=== PATIENT | female | born 1980 | race African-American/Black ===

== ENCOUNTER 2017-07-16 14:27 | Observation (INO) | payer OTHER ==
[~2017-07-16] VITALS: Ht 154.9 cm; Wt 120.7 kg
[~2017-07-16 14:27] MED LIST: FUROSEMIDE40 MG PO; IBUPROFEN400 MG PO
[2017-07-16] MEDS ORDERED: ENOXAPARIN SODIUM INJ 100 MG/ML SYR SC STA (17:16)
[2017-07-16] MEDS ORDERED: NITROGLYCERIN 0.4 MG SUBL SL PRN (17:30)
[2017-07-16] MEDS ORDERED: ASPIRIN 81 MG CHEW TAB PO ONE (17:30)
[2017-07-16] MEDS ORDERED: FAMOTIDINE 20 MG TAB PO SCH (17:30)
[2017-07-16] MEDS ORDERED: ONDANSETRON HCL INJ 2 MG/ML VIAL IV PRN (17:30)
[2017-07-16] MEDS ORDERED: DONNATAL/LIDOCAINE/MAALOX 30 ML SUSP PO ONE (18:00)
[2017-07-16] MEDS: ENOXAPARIN SODIUM INJ 100 MG/ML SYR SC SCH ×2 (18:30→21:00)
[2017-07-16 20:00] VITALS: BP 150/68
[2017-07-16 20:37] LABS: CREATINE KINASE 89 IU/L (29-168)
[2017-07-16] MEDS ORDERED: SIMVASTATIN 20 MG TAB PO SCH (21:00)
[2017-07-16] MEDS ORDERED: HYDRALAZINE HCL 20 MG/ML VIAL IV PRN (22:00)
[2017-07-16] MEDS ORDERED: ONDANSETRON HCL 4 MG ORAL DISINTEGRATING TAB PO PRN (22:00)
[2017-07-16] MEDS: MORPHINE SULFATE 2 MG/ML SYR IV PRN (22:39)
[2017-07-17] VITALS (7 sets, daily range): BP systolic 126–150; BP diastolic 53–89
[2017-07-17 06:59] LABS: BASOPHILS % 0.2 % (0.0-1.0); EOSINOPHILS # (AUTO) 0.2 (0.0-0.4); EOSINOPHILS % 4.4 % (0.0-6.0); HEMATOCRIT 33.2 % (34.2-44.1); LYMPHOCYTES % 44.3 % (18.0-39.1); MEAN CORPUSCULAR HEMOGLOBIN 26.2 pg (28-32); MEAN CORPUSCULAR HGB CONC 31.9 g/dL (31-35); MEAN CORPUSCULAR VOLUME 82.2 fL (81-99); MONOCYTES # (AUTO) 0.4 (0.2-0.8); MONOCYTES % 8.1 % (4.4-11.3); NEUTROPHILS % 42.8 % (38.7-80.0); PLATELET COUNT 273 x10e3/uL (140-360); RED BLOOD COUNT 4.04 x10e6/uL (3.6-5.1); RED CELL DISTRIBUTION WIDTH 14.1 % (11.7-14.4)
[2017-07-17 07:33] LABS: HEMOGLOBIN 10.6 g/dL (12.0-16.0)
[2017-07-17 07:36] LABS: ANION GAP 11.4 mmol/L (8-16); BLOOD UREA NITROGEN 16 mg/dL (7-26); BUN/CREATININE RATIO 19 (6-25); CARBON DIOXIDE 25 mmol/L (22-29); CHLORIDE 110 mmol/L (98-107); CHOL/HDL RATIO 2.9 (3.0-3.6); CHOLESTEROL 194 MD/DL (0-199); CREATINE KINASE 74 IU/L (29-168); CREATININE, SERUM 0.84 mg/dL (0.57-1.11); EST GLOMERULAR FILTRATION RATE > 60 ML/MIN (60-); GLUCOSE 99 mg/dL (74-118); HDL CHOLESTEROL 68 MG/DL (40-60); LDL CHOLESTEROL 117 MG/DL (60-130); MAGNESIUM 1.9 MG/DL (1.3-2.1); PHOSPHORUS 4.1 MG/DL (2.3-4.7); POTASSIUM 4.4 mmol/L (3.5-5.1); SODIUM 142 mmol/L (136-145); TRIGLYCERIDES 43 MG/DL (0-149)
[2017-07-17] MEDS: MORPHINE SULFATE 2 MG/ML SYR IV PRN (07:55)
[2017-07-17] MEDS ORDERED: FAMOTIDINE 20 MG TAB PO SCH (09:00)
[2017-07-17] MEDS: ENOXAPARIN SODIUM INJ 100 MG/ML SYR SC SCH (09:00)
[2017-07-17] MEDS ORDERED: ASPIRIN 325 MG TAB EC PO SCH (09:00)
--- NOTE | 2017-07-17 09:35 | Consultation ---
DATE OF CONSULTATION: July 17, 2017 CARDIOLOGY CONSULTATION REASON FOR CONSULTATION: Chest pain. HISTORY OF PRESENT ILLNESS: This is a 37-year-old female with diet-controlled diabetes, hypertension, obesity and bilateral DVTs in 2013. The patient presents with several-week history of chest pain. She reports it is sharp, retrosternal, lasting minutes at a time, worse with exertion, occurring several times a day. The patient had an episode prior to coming in, therefore came in for further evaluation. Cardiology consulted. Patient seen in room. Reports above complaints. Also states this morning she woke up with some chest discomfort, dull in nature, with right arm numbness. Currently, the discomfort has resolved. Troponin was checked and negative times 2 thus far. EKG with no ST changes suggesting acute event. PAST MEDICAL HISTORY 1. Diabetes. 2. Hypertension. 3. Bilateral DVTs in 2013. 4. Obesity. 5. Anal fissures. 6. Chronic lower extremity edema. PAST SURGICAL HISTORY 1. Tubal ligation. 2. x4. 3. Left inguinal hernia repair. 4. Bilateral mrezek-pae-ivy keloids removed. 5. Apparently spinal tap in 2016 for fluid behind her right eye. 6. Left ACL and meniscus repair in 2016. SOCIAL HISTORY: She is . She has 4 kids, reported healthy. 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 She denies any alcohol use, tobacco use or illicit drugs. FAMILY HISTORY: Mother alive at 67 years of age, reported as healthy. Father is at age of 43 from [place]. HOME MEDICATIONS: Bumex, unknown dosage. ALLERGIES: NO KNOWN ALLERGIES. REVIEW OF SYSTEMS GENERAL: Denies any weight gains, weight changes, fatigue, weakness, fevers, chills, or night sweats. SKIN: No rashes or bruises. HEENT: No head trauma. No nausea or vomiting. Does have blurred vision. She is supposed to be using corrective vision, however, does not. No tinnitus, vertigo or earaches. Positive for stuffiness and sneezing. Denies any epistaxis. No hoarseness, sore throat, swollen neck. CARDIAC: Chest pain as above. Dyspnea on exertion. Denies any orthopnea or PND. RESPIRATORY: Positive for shortness of breath. Denies any wheezing, cough, hemoptysis. GI: Good appetite. Negative for nausea or vomiting. No diarrhea or constipation. Positive for occasional rectal bleeding secondary to anal fissure. Suppose to have yearly colonoscopy. However, her last colonoscopy was in 2013. : Denies any frequency, urgency, polyuria, hematuria. VASCULAR: Positive for lower extremity edema. Reports worsened recent history. Denies any calf tenderness. MUSCULOSKELETAL: No muscle weakness. However, generalized joint pain, right knee worse than left. NEUROLOGIC: Denies any numbness, tingling, weakness, fainting, blackout or seizures. HEMATOLOGY: Denies any bruising. Positive for rectal bleeding as mentioned above. ENDOCRINE: Denies any heat or cold intolerance, any excessive sweating, polyuria, polydipsia, polyphagia. PHYSICAL EXAMINATION VITALS: Height 61 inches, weight 267 pounds, BMI 50. Current vital signs: Temperature 97.6, pulse 78, respiratory rate 18, blood pressure 130/80, pulse ox 99%. GENERAL: Appears her stated age, in no acute distress, reliable informant. HEENT: Normocephalic. Pupils are equal and reactive. The extraocular movements are intact. Trachea is midline. No thyromegaly. Oral mucosa is pink. No JVD. No carotid bruit appreciated. HEART: Regular rate and rhythm. PMI in 5th intercostal space. LUNGS: Clear to auscultation bilaterally. ABDOMEN: Soft. Nontender. No organomegaly noted; however, the patient is obese. MUSCULOSKELETAL: Good muscle strength throughout. Positive lower extremity swelling +2. VASCULAR: There are +2 bilateral radial pulses and +1 DP pulses. NEUROLOGIC: Cranial nerves II through XII seem intact. LABS: White count 4.5, hemoglobin 10.6, hematocrit 33, platelets 273. Chemistry: Sodium 142, potassium 4.4, chloride 110, BUN 16, creatinine 0.8. Troponin less than 0.001 times 2. The patient had a CT. No large pulmonary thromboembolism; however, the study was limited secondary to suboptimal contrast opacification. D-dimer was negative at 218. EKG: Normal sinus rhythm. ASSESSMENT 1. Chest pain. 2. Hypertension. 3. Diabetes. 4. Morbid obesity. 5. Anemia. PLAN 1. The patient presents with mixed chest pain symptoms for several weeks. So far, negative enzymes times 2. EKG without acute changes. However, patient with multiple risk factors and family history of early CAD. We will go ahead and do a stress test to evaluate. 2. Will do echo to evaluate heart function since the patient had worsening shortness of breath and lower extremity edema in recent history. 3. Continue tele monitoring for now. 4. Will obtain A1c. 5. Regarding her anemia, will defer to primary service for workup. 6. Further recommendations as course dictates. Thank you very much for this consult. Dictated by: Danyel Guajardo NP Seen and examined, unfortunately can not excercise 2/2 to knee injury, will do Lexiscan stress test Job#: [id number] CACHORRO MORGAN
[2017-07-17 12:00] LABS: ALBUMIN 3.1 g/dL (3.5-5.0); BILIRUBIN,DIRECT 0.1 mg/dL (0.0-0.5)
[2017-07-17 12:15] LABS: THYROID STIMULATING HORMONE 0.969 uIU/mL (0.350-4.940)
[2017-07-17] MEDS ORDERED: REGADENOSON 0.4 MG/5 ML SYR IV ONE (12:15)
[2017-07-17] MEDS ORDERED: BUMETANIDE1 MG PO (15:11)
== END 2017-07-17 15:32 | disposition home or self-care (01) ==
LOC: FSED 14:27 → IMCU 19:32
PROVIDERS: ADMIT Internal Medicine; ATTEND Internal Medicine
DX: R07.9 Chest pain, unspecified (principal); Z86.718 Personal history of other venous thrombosis and embolism; Z79.01 Long term (current) use of anticoagulants; I25.10 Atherosclerotic heart disease of native coronary artery without angina pectoris; E66.01 Morbid (severe) obesity due to excess calories; Z68.43 Body mass index [BMI] 50.0-59.9, adult; E11.9 Type 2 diabetes mellitus without complications; D64.9 Anemia, unspecified; I10 Essential (primary) hypertension; Z82.49 Family history of ischemic heart disease and other diseases of the circulatory system
CPT/HCPCS: 36415 ×2; 71260; 76937; 78452; 80048 ×2; 80061; 80076; 80307; 81003; 82550 ×2; 82553 ×2; 83036; 83735; 83880; 84100; 84443; 84484 ×2; 85025 ×2; 85379; 93005; 93017; 93306; 93970; 99284; A9502; G0378 ×2; J1650; J2270 ×2; J2405

== ENCOUNTER 2018-02-26 20:11 | Emergency (ER) | payer SELFPAY ==
[~2018-02-26] VITALS: Ht 154.9 cm; Wt 111.6 kg
[~2018-02-26 20:11] MED LIST changes: +BUMETANIDE1 MG PO
--- OUTSIDE RECORDS SUMMARY | 2018-02-26 20:14 | XMS REPORT ---
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 Allergies, Adverse Reactions, Alerts This patient has no known allergies or adverse reactions. Medications This patient has no known medications. Results Test Description Test Time Test Comments Text Results Atomic Results Result Comments Stress Test - Treadmill ONLY 2017-07-17 14:15:00 [place] [address] Patient Name : ROSHNI KENT MR #: [id number] : 1980 Age/Sex: 37/F Adm Physician : JOSE ANGEL KAY MD Admit Date : 07/16/17 Location : [facility] Room/Bed : [place] [address] REPORT: Cardiology Report DATE OF STUDY: July 17, 2017 LEXISCAN NUCLEAR STRESS TEST INDICATION FOR STUDY: Chest pain, inability to exercise due to arthritis-type symptoms and leg pain. TECHNICAL DETAILS: After risks, benefits, pros and cons of today's Lexiscan nuclear stress test were explained to the patient, patient agreed to proceed. Patient was brought to the nuclear lab where she received an 11 mCi dose of technetium 99 tetrofosmin intravenously, and after 40 minutes she was taken to the SPECT camera for resting myocardial perfusion imaging. Afterwards she was then brought to the stress lab were 12-lead EKG monitoring and blood pressure monitoring were obtained. She received a dose of Lexiscan 0.4 mg intravenously followed by a 33 mCi dose of technetium 99 tetrofosmin intravenously. Resting heart rate went from a baseline of 83 beats per minute to 126 beats per minute. Blood pressure went from a baseline of 127/83 to 132/76. Patient had very mild T-wave changes with Lexiscan infusion that quickly resolved. She had no typical angina pain but did feel short of breath. She was then after 25 minutes taken to the SPECT camera for stress myocardial perfusion imaging. FINDINGS 1. Overall both rest and stress imaging is influenced by the presence of severe breast and soft-tissue attenuation artefact due to her habitus. 2. Rest myocardial perfusion imaging reveals slight decreased apical wall uptake and slight decreased counts in the anterior wall. 3. Stress myocardial perfusion imaging reveals much better tracer uptake in the anterior and apical menendez and appears to be normal. 4. The following gated measurements were obtained. End-diastolic volume was 77 mL and systolic volume 13 mL, calculated left ventricular ejection fraction is 83% with normal wall motion. CONCLUSIONS 1. Probably normal myocardial perfusion imaging study. However, quality of the study is slightly limited due to the presence of significant soft-tissue attenuation artefact secondary to her habitus. 2. Normal left ventricular function with ejection fraction calculated to be 83%. 3. Findings of the stress test explained to the patient including limitations. 4. Overall findings of the stress test compatible with a low-risk study. Job#: [id number] EV Signature Date Dictated By: ADE DUONG MD Transcribed By: [facility] on 07/17/17 <Electronically signed by LORRAINE DUONG MD>for ADE DUONG MD<<Signature on File>>08/17/17 2770 COPY TO: US GUIDANCE FOR VASCULAR ACCES [place] [address] Patient Name: ROSHNI KENT MR #: [id number] : 1980 Age/Sex: 37/F Req #: [id number] Adm Physician: JOSE ANGEL KAY MD Ordered by: SHANAE CRUMP [employer] Report #: [id number] Location: [facility] Room/Bed: [place] [address] Procedure: [id number] US/US GUIDANCE FOR VASCULAR ACCES Exam Date: 07/17/17 Exam Time: 1140 REPORT STATUS: Signed PROCEDURE: US GUIDANCE FOR VASCULAR ACCESS COMPARISON: None. INDICATIONS: IV access FINDINGS: Ultrasound evaluation of potential access sites was performed. After successfully identifying a patent vessel, US guidance was used to puncture the vein. A permanent recording was created for the patient record. CONCLUSION: Successful IV access by Ultrasound guidance. Edis Cerda M.D. Dictated by: Edis Cerda M.D. on 07/30/2017 at 12:32 Electronically approved by: Edis Cerda M.D. on 07/30/2017 at 12:32 Dictated By: EDIS CERDA MD 1232 Transcribed By: KERRI on 07/30/17 1232 COPY TO: SHANAE CRUMP NP
[2018-02-26] MEDS ORDERED: CYCLOBENZAPRINE HCL 10 MG TAB PO ONE (21:00)
[2018-02-26] MEDS ORDERED: KETOROLAC TROMETHAMINE 60 MG/2 ML VIAL IM ONE (21:00)
== END 2018-02-26 22:00 | disposition home or self-care (01) ==
LOC: FSED 20:11
DX: G89.11 Acute pain due to trauma (principal); M54.5 Low back pain; M25.512 Pain in left shoulder; M79.632 Pain in left forearm; M25.552 Pain in left hip; M79.652 Pain in left thigh; M25.562 Pain in left knee; V43.52XA Car driver injured in collision with other type car in traffic accident, initial encounter; Y92.488 Other paved roadways as the place of occurrence of the external cause; I10 Essential (primary) hypertension; Z86.718 Personal history of other venous thrombosis and embolism
CPT/HCPCS: 99283; J1885

== ENCOUNTER 2018-12-20 22:43 | Emergency (ER) | payer SELFPAY ==
[~2018-12-20] VITALS: Ht 154.9 cm; Wt 111.6 kg
== END 2018-12-21 03:21 | disposition home or self-care (01) ==
LOC: FSED 22:43
DX: R30.0 Dysuria (principal); R10.9 Unspecified abdominal pain; N30.91 Cystitis, unspecified with hematuria
CPT/HCPCS: 80048; 81003; 85025; 99282

== ENCOUNTER 2020-11-16 18:33 | Emergency (ER) | payer SELFPAY ==
[~2020-11-16] VITALS: Ht 154.9 cm; Wt 97.1 kg
[~2020-11-16 18:33] MED LIST changes: +NAPROSYN500 MG PO
[2020-11-16] MEDS ORDERED: KETOROLAC TROMETHAMINE 30 MG/ML VIAL IV STA (21:21)
[2020-11-16] MEDS ORDERED: KETOROLAC TROMETHAMINE 30 MG/ML VIAL IM STA (21:28)
[2020-11-16] MEDS ORDERED: KETOROLAC TROMETHAMINE 30 MG/ML VIAL ONE (21:39)
[2020-11-16 21:41] VITALS: BP 136/74
[2020-11-16] MEDS ORDERED: DICYCLOMINE HCL10 MG PO (22:13)
== END 2020-11-16 22:16 | disposition home or self-care (01) ==
LOC: FSED 19:03
DX: R10.30 Lower abdominal pain, unspecified (principal); I10 Essential (primary) hypertension; E11.9 Type 2 diabetes mellitus without complications; Z86.718 Personal history of other venous thrombosis and embolism
CPT/HCPCS: 74176; 99283; J1885

== ENCOUNTER 2022-04-04 18:33 | Emergency (ER) | payer OTHER ==
[~2022-04-04] VITALS: Ht 152.4 cm; Wt 84.4 kg
[~2022-04-04 18:33] MED LIST changes: +BACTRIM DS TAB1 EACH PO; +DICYCLOMINE HCL10 MG PO; +GABAPENTIN600 MG PO
[2022-04-04] MEDS ORDERED: ASPIRIN 81 MG CHEW TAB PO STA (20:07)
[2022-04-04] MEDS ORDERED: DONNATAL/LIDOCAINE/MAALOX 30 ML SUSP PO ONE (20:15)
[2022-04-04] MEDS ORDERED: LIDOCAINE VISC 2% SOLN 15 ML UDC ONE (20:24)
[2022-04-04] MEDS ORDERED: BELLADONNA ALK/PHENOBARBITAL 5 ML UDC ONE (20:25)
[2022-04-04] MEDS ORDERED: ASPIRIN 325 MG TAB ONE (20:25)
[2022-04-04] MEDS ORDERED: MAGNESIUM/ALUMINUM/SIMETHICONE 30 ML UDC ONE (20:25)
[2022-04-04] MEDS ORDERED: PEPCID20 MG PO (20:49)
== END 2022-04-04 21:15 | disposition home or self-care (01) ==
LOC: FSED 18:46
DX: R07.89 Other chest pain (principal); R06.02 Shortness of breath; R20.0 Anesthesia of skin; I10 Essential (primary) hypertension; E11.9 Type 2 diabetes mellitus without complications; E78.5 Hyperlipidemia, unspecified
CPT/HCPCS: 71045; 80053; 81003; 81025; 82553; 84484; 85025; 93005; 99284